=== PATIENT | male | born 1990 | race Caucasian/White ===

== ENCOUNTER 2018-04-01 03:42 | Emergency (ER) | payer SELFPAY ==
[~2018-04-01] VITALS: Ht 170.2 cm; Wt 67.6 kg
[2018-04-01 03:53] VITALS: Ht 170.2 cm; Wt 67.6 kg
[2018-04-01 06:54] VITALS: BP 124/74
== END 2018-04-01 06:54 | disposition home or self-care (01) ==
LOC: ED 03:42
DX: S01.01XA Laceration without foreign body of scalp, initial encounter (principal); S20.212A Contusion of left front wall of thorax, initial encounter; S80.02XA Contusion of left knee, initial encounter; S09.8XXA Other specified injuries of head, initial encounter; Y04.8XXA Assault by other bodily force, initial encounter; Y93.89 Activity, other specified; Y92.89 Other specified places as the place of occurrence of the external cause; Y99.8 Other external cause status